=== PATIENT | male | born 2000 | race Hispanic/Latino ===

== ENCOUNTER 2021-07-19 17:13 | Emergency (ER) | payer OTHER ==
[~2021-07-19] VITALS: Ht 188 cm; Wt 117.9 kg
[2021-07-19 17:30] VITALS: BP 156/71
[2021-07-19] MEDS ORDERED: ONDANSETRON 4MG INJ IVP ONE (17:30)
[2021-07-19] MEDS ORDERED: HYDROCODONE/ACETAMINOPHEN 10/325 MG TAB PO ONE (17:30)
[2021-07-19 17:32] VITALS: BP 156/71
[2021-07-19] MEDS ORDERED: IBUP-1552 PO (18:59)
== END 2021-07-19 19:23 | disposition home or self-care (01) ==
LOC: EDH 17:13
DX: S46.912A Strain of unspecified muscle, fascia and tendon at shoulder and upper arm level, left arm, initial encounter (principal); S40.012A Contusion of left shoulder, initial encounter; Z79.1 Long term (current) use of non-steroidal anti-inflammatories (NSAID); Z79.899 Other long term (current) drug therapy; Y93.89 Activity, other specified; W01.0XXA Fall on same level from slipping, tripping and stumbling without subsequent striking against object, initial encounter; Y92.89 Other specified places as the place of occurrence of the external cause; Y99.8 Other external cause status
CPT/HCPCS: 73030; 96374; 99283; J2405